=== PATIENT | female | born 1955 | race Hispanic/Latino ===

== ENCOUNTER 2024-11-19 00:56 | Emergency (ER) | payer MEDICARE, OTHER, SELFPAY ==
[2024-11-19 00:59] VITALS: BP 184/80
--- NOTE | 2024-11-19 01:15 | ED.GENMED ---
History of Present Illness
<Mario Jaime Janett, DO - Last Filed: 11/19/24 15:23>
General
Chief Complaint: Abdominal Pain
Time Seen by Provider: 11/19/24 01:15
History of Present Illness
History of Present Illness:
TIME OF INITIAL ENCOUNTER: 1 AM
HPI: Patient presents with abdominal pain more so on the left side. There is no associated nausea or vomiting or diarrhea. The symptoms have been ongoing for the past day or so. I spoke to the son at bedside for history as there is somewhat of a
language barrier
EXAM:
GENERAL: Well appearing but appears uncomfortable
HEENT: Moist oral mucosa
CARDIOVASCULAR: No murmurs, normal heart rate, regular rhythm, No chest wall tenderness
PULMONARY: No respiratory distress, breath sounds are clear and equal
ABDOMEN: Soft with no peritoneal signs, mild left lower quad tenderness
NEUROLOGIC: Excellent strength all extremities, no coordination deficits
PSYCHIATRIC: Appropriate mental status, normal insight and judgement
EXTREMITIES: Nontender, no edema, moves all extremities equally
SKIN: No rash, no lesions
NUMBER AND COMPLEXITY OF PROBLEMS ADDRESSED AT THE ENCOUNTER
� Chronic conditions affecting care: Has had COVID in the past
� Acute Exacerbation and/or Progression of Chronic Illness: This is an acute problem
� Differential Diagnosis includes: Diverticulitis, mesenteric adenitis, UTI, kidney stone
AMOUNT AND/OR COMPLEXITY OF DATA TO BE REVIEWED AND ANALYZED
� I performed an independent evaluation of and my interpretation is:
EKG:
CT:
X-rays:
Laboratory Studies: White count 12.2, hemoglobin normal
Other:
� Review of other/old records: I reviewed records, the patient was here with a headache in 2021
� Clinical information was obtained by an independent historian: I spoke to son at bedside who also provided additional history and help
� Prescriptions/Medications Considered but not given:
� Further testing considered but not performed:
RISK OF COMPLICATIONS AND/OR MORBIDITY OR MORTALITY OF PATIENT MANAGEMENT
� Social determinants of health affecting care: Lives at home, speaks [place] is primary language but does understand and speak some Tajik
� Discussion with other providers:
� Escalation of care including admission/observation vs risk of discharge considered: The patient was given Dilaudid as she did appear somewhat uncomfortable upon arrival
ANY OTHER UPDATES:
2:55 AM: I reassessed patient. She appears more comfortable. Mild leukocytosis noted. Urinalysis appears to be contaminated�doubt urinary tract infection.
Phy Exam
<Mario Rowland, DO - Last Filed: 11/19/24 15:23>
Physical Exam
Physical Exam:
See HPI
Course
<Mario Rowland, DO - Last Filed: 11/19/24 15:23>
Orders/Labs/Results
Orders:
Orders
11/19/24 01:19
CT Abd/pelvis W Iv Cont Urgent
Comment:
Reason For Exam: LLQ pain tender
0.9% Sodium Chloride 500 ml [Nss] 500 ml IV BOLUS
HYDROmorphone [Dilaudid] 0.5 mg IV NOW STA
Ondansetron Injectable [Zofran] 4 mg IV NOW STA
11/19/24 01:39
Complete Blood Count/With Diff Urgent
11/19/24 02:01
Urinalysis Reflex To Culture Urgent
Date Specimen was Collected: 11/19/24
Time Specimen was Collected: 01:54
Urine Microscopic Reflex Cult Urgent
Urine Culture Urgent
MAXIME Source: U
Specimen Description:
Date Specimen was Collected: 11/19/24
Time Specimen was Collected: 01:54
11/19/24 03:27
Comprehensive Metabolic Panel Urgent
11/19/24 05:09
Amoxicillin 875 mg/Clav 125 mg [Augmentin 875 mg/125 mg] 1 tablet PO NOW STA
Abnormal Lab Results
11/19/24 11/19/24 11/19/24
01:39 02:01 03:27
WBC 12.2 H 10^3/uL
(4.8-10.8)
Abs Immat Gran (auto) 0.1 H 10^3/uL
(0-0.05)
Absolute Neuts (auto) 6.8 H 10^3/uL
(1.4-6.5)
Absolute Lymphs (auto) 4.4 H 10^3/uL
(1.2-3.4)
Absolute Monos (auto) 0.8 H 10^3/uL
(0.1-0.6)
Creatinine 0.5 L mg/dL
(0.6-1.0)
Glucose 100 H mg/dl
(70-99)
Ur Occult Blood Reflex 2+ A
(Negative)
Leukocyte Esterase Rfl 1+ A
(Negative)
Urine RBC 7-10 A /HPF
(0-2)
Urine Bacteria (Reflex) Moderate A
(Negative)
11/19/24 01:39
11/19/24 03:27
Vital Signs
Initial and Last Documented VS:
Initial Vital Signs
Temp Pulse Resp BP Pulse Ox
36.6 C 60 24 184/80 96
11/19/24 00:59 11/19/24 00:59 11/19/24 00:59 11/19/24 00:59 11/19/24 00:59
Last Documented Vital Signs
Temp Pulse Resp BP Pulse Ox
36.6 C 58 16 134/68 97
11/19/24 00:59 11/19/24 04:24 11/19/24 04:24 11/19/24 04:24 11/19/24 04:24
<Raymundo Natarajan, - Last Filed: 11/19/24 05:10>
Orders/Labs/Results
Orders:
Orders
11/19/24 01:19
CT Abd/pelvis W Iv Cont Urgent
Comment:
Reason For Exam: LLQ pain tender
0.9% Sodium Chloride 500 ml [Nss] 500 ml IV BOLUS
HYDROmorphone [Dilaudid] 0.5 mg IV NOW STA
Ondansetron Injectable [Zofran] 4 mg IV NOW STA
11/19/24 01:39
Complete Blood Count/With Diff Urgent
11/19/24 02:01
Urinalysis Reflex To Culture Urgent
Date Specimen was Collected: 11/19/24
Time Specimen was Collected: 01:54
Urine Microscopic Reflex Cult Urgent
Urine Culture Urgent
MAXIME Source: U
Specimen Description:
Date Specimen was Collected: 11/19/24
Time Specimen was Collected: 01:54
11/19/24 03:27
Comprehensive Metabolic Panel Urgent
11/19/24 05:09
Amoxicillin 875 mg/Clav 125 mg [Augmentin 875 mg/125 mg] 1 tablet PO NOW STA
Abnormal Lab Results
11/19/24 11/19/24 11/19/24
01:39 02:01 03:27
WBC 12.2 H 10^3/uL
(4.8-10.8)
Abs Immat Gran (auto) 0.1 H 10^3/uL
(0-0.05)
Absolute Neuts (auto) 6.8 H 10^3/uL
(1.4-6.5)
Absolute Lymphs (auto) 4.4 H 10^3/uL
(1.2-3.4)
Absolute Monos (auto) 0.8 H 10^3/uL
(0.1-0.6)
Creatinine 0.5 L mg/dL
(0.6-1.0)
Glucose 100 H mg/dl
(70-99)
Ur Occult Blood Reflex 2+ A
(Negative)
Leukocyte Esterase Rfl 1+ A
(Negative)
Urine RBC 7-10 A /HPF
(0-2)
Urine Bacteria (Reflex) Moderate A
(Negative)
11/19/24 01:39
11/19/24 03:27
Vital Signs
Initial and Last Documented VS:
Initial Vital Signs
Temp Pulse Resp BP Pulse Ox
36.6 C 60 24 184/80 96
11/19/24 00:59 11/19/24 00:59 11/19/24 00:59 11/19/24 00:59 11/19/24 00:59
Last Documented Vital Signs
Temp Pulse Resp BP Pulse Ox
36.6 C 58 16 134/68 97
11/19/24 00:59 11/19/24 04:24 11/19/24 04:24 11/19/24 04:24 11/19/24 04:24
<Mario Rowland DO - Last Filed: 11/19/24 15:23>
*Critical Care Note
Total Time (30-74mins, 75-104mins- exclusive of procedures): Not Applicable
<Raymundo Natarajan DO - Last Filed: 11/19/24 05:10>
Update Note
Update Note:
CT ABDOMEN/PELVIS WITH CONTRAST
IMPRESSION:
1. Uncomplicated sigmoid diverticulitis
2. No bowel obstruction. Status post cholecystectomy. Normal appendix
Incidentals:
-Small hiatal hernia
- No obstructive uropathy.
- No hepatic or pancreatic mass.
- No abdominal aortic aneurysm.
- No acute osseous abnormality.
-High-pass atelectasis
-Umbilical fat-containing hernia without suspicious features. Inguinal lymph nodes are likely reactive
Case finalized on Nov 19 2024 4:44AM ET
ED Attending Note
<Mario Rowland DO - Last Filed: 11/19/24 15:23>
-
Portions of this chart may have been created with voice recognition software.� Occasional wrong word or��sound alike� substitutions may have occurred due to the inherent limitations of voice recognition software.
Discharge Plan
Departure
Patient Disposition: Home (Routine Discharge)
Date of Disposition: 11/19/24
Time of Disposition: 05:08
Patient with high blood pressure during this ER visit?: Yes
Condition: Good
Discharge Problem:
Diverticulitis of sigmoid colon
Instructions: Diverticulitis (DC), Abdominal Pain, BLOOD PRESSURE
Prescriptions:
New
amoxicillin-pot clavulanate 875-125 mg tablet
1 tab PO BID Qty: 20 0RF
Referrals:
KAY ESPINOSA DO [Family Provider] -
Activity Restrictions/Additional Instructions:
Your prescriptions were sent electronically to the pharmacy that you specified.
It was a pleasure meeting you and taking part in your care. We hope for your continued healing and wellness.
Please read discharge instructions in their entirety. However, they are for general education and may not describe your exact diagnosis at discharge. Information on your ER visit and medical conditions were discussed with you along with appropriate
follow up information...
If indicated, please take your medications as instructed and indicated on discharge paperwork.
Please schedule a follow up appointment as directed. Call to schedule an appointment
Please return to the emergency department with ANY change in, persisting, or worsening of symptoms. If any of your symptoms do not improve, or persist, or become more severe within 6-12 hours, please return to the emergency department for further
care.
Please return to the emergency department if you develop a headache, neck pain/stiffness, fever greater than 100.4F, chest pain, shortness of breath, persistent nausea, vomiting, slurred speech, difficulty walking, numbness/tingling, weakness, signs
of infection or any other symptoms that are worrisome to you.
If you have any questions or concerns please do not hesitate to call the Hospital at or E-mail me directly at [email or web address]
Interventions
Interventions:
*Risk Screen - Suicide Last Done: 11/19/24 01:47
*General Assessment Last Done: 11/19/24 01:47
*Neglect/Abuse Screening Last Done: 11/19/24 01:47
*ED COVID-19 Vaccine History Last Done: 11/19/24 01:47
*Nursing Disposition Last Done: 11/19/24 05:33
CY-Nlyjpn-Hotaffjprn Assessment Last Done: 11/19/24 01:47
Discharge Date and Time
Discharge Date/Time: 11/19/24 05:33
Print Language: IVORIAN
[2024-11-19 01:47] VITALS: BMI 34.9
[2024-11-19] MEDS: DILAUDID 0.5 MG IV (01:57)
[2024-11-19] MEDS: ZOFRAN 4 MG IV (01:57)
[2024-11-19] MEDS: NSS 500 IV (01:57)
[2024-11-19 02:07] LABS: Urine Albumin Negative (Neg - Trace); Urine Bilirubin Negative (Negative); Urine Character Clear (Clear); Urine Color Yellow; Urine Glucose Negative (Negative); Urine Ketone Negative (Negative); Urine Leukocyte 1+ (Negative); Urine Nitrite Negative (Negative); Urine Occult Blood 2+ (Negative); Urine Urobilinogen Negative (Neg - 1+)
[2024-11-19 02:32] LABS: Urine Mucus Few; Urine Squamous Cell >30 /LPF (Few)
[2024-11-19 02:34] LABS: Urine Bacteria Moderate (Negative)
[2024-11-19 02:46] LABS: % Basophils 0.7 % (0-2); % Eosinophils 1.5 % (0-6); % Immature Granulocytes 0.4 % (0-0.5); % Lymphocytes 35.7 % (20.5-51.1); % Monocytes 6.5 % (1.7-9.3); % Neutrophils 55.2 % (42.2-75.2); Absolute Basophils 0.1 10^3/uL (0-0.2); Absolute Eosinophils 0.2 10^3/uL (0-0.7); Absolute Immature Granulocytes 0.1 10^3/uL (0-0.05); Absolute Lymphocytes 4.4 10^3/uL (1.2-3.4); Absolute Monocytes 0.8 10^3/uL (0.1-0.6); Absolute Neutrophils 6.8 10^3/uL (1.4-6.5); Hematocrit 38.5 % (37.0-47.0); Mean Corp Hgb Conc. 33.8 g/dL (33.0-37.0); Mean Corpuscular Hgb 29.6 pg (27.0-31.0); Mean Corpuscular Volume 87.7 fL (81.0-99.0); Nucleated Red Blood Cells % 0 %; Platelet Count 288 10^3/uL (130-400); Red Blood Cell Count 4.39 10^6/uL (4.20-5.40); Red Cell Dist. Width 13.7 % (11.5-14.5); White Blood Cell Count 12.2 10^3/uL (4.8-10.8)
[2024-11-19 04:02] LABS: ALT (SGPT) 28 U/L (0-35); AST (SGOT) 21 U/L (14-36); Albumin 4.4 g/dl (3.5-5.0); Alkaline Phosphatase 43 U/L (38-126); Blood Urea Nitrogen 13 mg/dl (7-17); Calcium 8.8 mg/dl (8.4-10.2); Carbon Dioxide 23 mmol/L (22-30); Chloride 104 mmol/L (98-107); Estimated Creatinine Clearance 99 ml/min; Glucose 100 mg/dl (70-99); Potassium 3.9 mmol/L (3.5-5.1); Sodium 137 mmol/L (135-145); Total Bilirubin 0.8 mg/dl (0.2-1.3); Total Protein 6.6 g/dl (6.3-8.2); eGFR > 60.00
[2024-11-19 04:24] VITALS: BP 134/68
[2024-11-19] MEDS: AUGMENTIN 875 MG/125 MG 1 TABLET PO (05:27)
== END 2024-11-19 05:33 | disposition home or self-care (01) ==
LOC: EMR 00:56
PROVIDERS: EMERGENCY PHYSICIAN Emergency Medicine; FAMILY PHYSICIAN Student in an Organized Health Care Education/Training Program
DX: K57.32 Diverticulitis of large intestine without perforation or abscess without bleeding (principal); K44.9 Diaphragmatic hernia without obstruction or gangrene; Z90.49 Acquired absence of other specified parts of digestive tract
CPT/HCPCS: 96374; 96375; 96361; 99284; 74177; 80053; 81003; 81015; 85025; 87086; Q9967